=== PATIENT | male | born 1950 | race Caucasian/White ===

== ENCOUNTER → 2016-07-04 | Outpatient (CLI) | payer OTHER ==
[~2016-07-04] MED LIST: ASPI1TAB PO; CENTTAB47 PO; CIPR500T89 PO; FISH100049 PO; GARL1CAP PO; LISI-538 PO; OMEP40CA2 PO; ROXI1TAB2 PO; TAMS0.4C2 PO; TYLE650T25 PO; VIAGRA PO; ZOCO20TA PO
[2016-07-04 13:19] LABS: MEAN CORPUSCULAR HEMOGLOBIN 30.4 pg (27.0-33.0); MEAN CORPUSCULAR VOLUME 89.5 fl (80.0-96.0); RED CELL DISTRIBUTION WIDTH 12.6 % (11.5-14.5); WHITE BLOOD COUNT 5.7 K/mm3 (4.0-10.0)
[2016-07-04 13:32] LABS: ANION GAP 7 MEQ/L (8-16); BLOOD UREA NITROGEN 21 MG/DL (7-18); CALCIUM LEVEL 8.7 MG/DL (8.8-10.2); CARBON DIOXIDE LEVEL 30 MEQ/L (21-32); CHLORIDE LEVEL 102 MEQ/L (98-107); CREATININE FOR GFR 0.79 MG/DL (0.70-1.30); GLOMERULAR FILTRATION RATE > 60.0 (>49); GLUCOSE, FASTING 85 MG/DL (80-110); POTASSIUM SERUM 4.7 MEQ/L (3.5-5.1); SODIUM LEVEL 139 MEQ/L (136-145)
== END ==
LOC: M SMT 11:07
PROVIDERS: ATTEND Urology
DX: N20.0 Calculus of kidney (principal)

== ENCOUNTER → 2016-07-11 | Outpatient (CLI) | payer OTHER ==
--- NOTE | 2016-07-11 08:45 | REP ---
Clinical: Nephrolithiasis. Comparison: None. Findings: Left kidney demonstrates minimal stranding and possible 1 mm nonobstructing calculus along with mild hydronephrosis and proximal hydroureter. The mid to distal ureter is incompletely evaluated due to surrounding structures which are relatively isointense to the ureter and obscure discrete visualization through the abdomen and pelvis. The right kidney demonstrates mild perinephric stranding and suggestions for a small parapelvic and cortical based cysts without hydroureternephrosis and no obvious nephrolithiasis. The bladder is partially collapsed but grossly unremarkable. The prostate is prominent and measures 5 cm maximal diameter. Liver, spleen, pancreas, gallbladder, and bilateral adrenal glands are normal for noncontrast evaluation. The enteric system demonstrates scattered colonic diverticulosis without acute diverticulitis and no evidence for bowel obstruction or perforation. Normal terminal ileum and appendix identified in the right lower quadrant. No pelvic fluid or ascites. No obvious adenopathy. Atherosclerotic changes of the aorta noted without aneurysm. Lung bases demonstrate moderate to large hiatal hernia containing portions of the proximal stomach. Lung bases demonstrate scattered chronic interstitial changes and scarring with bronchiectasis. Atherosclerotic changes to the coronary arteries noted with mild cardiomegaly. Skeletal structures demonstrate advanced degenerative changes and chronic dextroconvex scoliosis. Small early left inguinal hernia contains a portion of nonobstructed sigmoid colon. Impression: 1. Left-sided hydronephrosis and proximal hydroureter without obvious evidence for obstructing calculus is possibly related to extrinsic compression due to scoliosis and associated positional changes of the intra-abdominal structures. A 1 mm left intrarenal calculus is identified. The right kidney suggests simple and complex cysts which may be further evaluated by ultrasound. 2. Enlarged prostate gland. 3. Moderate to large hiatal hernia containing portion of proximal stomach. 4. Colonic diverticulosis without acute diverticulitis. 5. Small forming left inguinal hernia containing nonobstructed portion of sigmoid colon. Signed by Miguel Angel Berry MD 07/11/2016 08:36 A
== END ==
LOC: M RAD 08:07
PROVIDERS: ATTEND Urology
DX: N20.0 Calculus of kidney (principal); N28.1 Cyst of kidney, acquired; N40.1 Benign prostatic hyperplasia with lower urinary tract symptoms; K44.9 Diaphragmatic hernia without obstruction or gangrene; K57.30 Diverticulosis of large intestine without perforation or abscess without bleeding; K40.90 Unilateral inguinal hernia, without obstruction or gangrene, not specified as recurrent; N13.30 Unspecified hydronephrosis; M41.9 Scoliosis, unspecified

== ENCOUNTER → 2016-07-26 | Outpatient (CLI) | payer OTHER ==
--- NOTE | 2016-07-26 09:34 | REP ---
MRI right knee without contrast: History: Osteoarthritis right knee. Right knee pain. No comparison radiographs. Technique: Sagittal, axial and coronal imaging planes are utilized for T1, proton density and T2-weighted scans. Findings: There is a large zone of marrow edema occupying much of the medial femoral condyle. There is a large wafer shaped osteochondral defect lesion of the weightbearing surface of the medial femoral condyle with a thin band of fluid undermining the subcortical bone in this region. The defect measures 20 mm anterior to posterior by 13 mm medial to lateral. There is slight flattening visible on the sagittal plane images. No other displacement. The marrow edema is centered around this lesion. It is consistent with a degenerative or traumatic osteochondral fracture. There is an associated complex tear of the medial meniscus. This particularly involves the posterior horn. No displaced meniscal material is seen. There is also a complex tear involving the lateral meniscus with increased signal intensity extending both superiorly and inferiorly at mid meniscal level. Anterior and posterior cruciate ligaments appear intact. The patellar and quadriceps tendons have an intact appearance. There is no evidence of medial or lateral collateral ligament disruption. There is a large joint effusion and a moderate sized Angel's cyst. There are extensive chondromalacia changes. The central zone of the patella shows full-thickness articular cartilage loss. There is some subcortical edema in the patella. Advanced chondromalacia is seen in both the medial and lateral femoral condyles as well as advanced chondromalacia changes in the medial tibial plateau articular cartilage. Joint space narrowing is seen medially. There is some medial meniscal extrusion. There is periarticular soft tissue edema. This extends caudal to the Angel's cyst in the posteromedial calf soft tissues. Impression: The most compelling abnormality is a large osteochondral fracture involving the articular surface of the medial femoral condyle with extensive associated marrow edema. 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 Both medial and lateral meniscal tears are seen. There is a large joint effusion and a Angel's cyst is observed. Signed by Herminio Watt MD 07/26/2016 10:19 A
== END ==
LOC: M RAD 06:29
PROVIDERS: ATTEND Family Medicine
DX: S72.431A Displaced fracture of medial condyle of right femur, initial encounter for closed fracture (principal); M17.11 Unilateral primary osteoarthritis, right knee; M23.300 Other meniscus derangements, unspecified lateral meniscus, right knee; M23.303 Other meniscus derangements, unspecified medial meniscus, right knee; M94.261 Chondromalacia, right knee; M71.21 Synovial cyst of popliteal space [Baker], right knee; X58.XXXA Exposure to other specified factors, initial encounter; Y93.9 Activity, unspecified; Y92.9 Unspecified place or not applicable; Y99.8 Other external cause status

== ENCOUNTER → 2016-08-10 | Outpatient (REF) | payer OTHER ==
[2016-08-10 12:49] LABS: BLOOD UREA NITROGEN 19 MG/DL (7-18); CREATININE FOR GFR 0.98 MG/DL (0.70-1.30); GLOMERULAR FILTRATION RATE > 60.0 (>49)
== END ==
LOC: M LABDRAW1 12:14
PROVIDERS: ATTEND Orthopaedic Surgery
DX: M87.051 Idiopathic aseptic necrosis of right femur (principal)

== ENCOUNTER → 2016-09-18 | Outpatient (CLI) | payer OTHER ==
[~2016-09-18] MED LIST changes: +CIPR-249 PO; -CIPR500T89 PO; +GARL10004 PO; -GARL1CAP PO
[2016-09-18 11:55] LABS: MEAN CORPUSCULAR HEMOGLOBIN 30.5 pg (27.0-33.0); MEAN CORPUSCULAR HGB CONC 34.1 g/dl (32.0-36.5); MEAN CORPUSCULAR VOLUME 89.4 fl (80.0-96.0); RED CELL DISTRIBUTION WIDTH 12.4 % (11.5-14.5)
[2016-09-18 12:00] LABS: INR 1.06
[2016-09-18 12:20] LABS: ALBUMIN 3.7 GM/DL (3.2-5.2); ALBUMIN/GLOBULIN RATIO 1.48 (1.00-1.93); ALKALINE PHOSPHATASE 79 U/L (45-117); ALT/SGPT 23 U/L (12-78); ANION GAP 7 MEQ/L (8-16); AST/SGOT 19 U/L (15-37); BILIRUBIN,TOTAL 0.6 MG/DL (0.2-1.0); BLOOD UREA NITROGEN 22 MG/DL (7-18); CALCIUM LEVEL 8.8 MG/DL (8.8-10.2); CARBON DIOXIDE LEVEL 28 MEQ/L (21-32); CHLORIDE LEVEL 109 MEQ/L (98-107); CREATININE FOR GFR 0.85 MG/DL (0.70-1.30); GLOMERULAR FILTRATION RATE > 60.0 (>49); GLUCOSE, FASTING 83 MG/DL (80-110); POTASSIUM SERUM 4.3 MEQ/L (3.5-5.1); SODIUM LEVEL 144 MEQ/L (136-145); TOTAL PROTEIN 6.2 GM/DL (6.4-8.2)
--- NOTE | 2016-09-18 16:46 | ECGEPIP ---
Stationary ECG Study [facility] Test Date: 2016-09-18 Pat Name: CONI ELLINGTON Department: Room: - Gender: M [employer]: : 1950 Requested By: Jo Krishna Order Number: [id number] Reading MD: Brain Rodriguez Measurements Intervals [place] Rate: 63 P: 6 TX: 156 QRS: -12 QRSD: 141 T: -5 QT: 454 QTc: 466 Interpretive Statements Sinus rhythm with PACs versus multifocal atrial rhythm. Low voltages with indeterminate frontal axis, Right bundle branch block and Q waves V1 and V2 Pulmonary disease versus body habitus; rule out prior septal injury Rhythm change from 12/22/14 Electronically Signed On 09-18-2016 16:46:31 EDT by Brain Rodriguez
--- NOTE | 2016-09-19 02:37 | REP ---
Clinical: Preoperative assessment. Technique: PA and lateral. Comparison: 12/22/2014. Findings: Elevation to the right hemidiaphragm remains relatively stable. Lung horn demonstrate chronic-appearing diffuse interstitial changes. The mediastinum and cardiac silhouette are within normal limits and stable. Airway appears patent and midline. The skeletal structures demonstrate age-related degenerative changes and evidence for prior right shoulder replacement. Impression: Chronic stable changes. No obvious acute cardiopulmonary process. Signed by Miguel Angel Berry MD 09/19/2016 02:29 A
== END ==
LOC: M ADMPAT 10:25
PROVIDERS: ATTEND Orthopaedic Surgery
DX: Z01.818 Encounter for other preprocedural examination (principal); M17.11 Unilateral primary osteoarthritis, right knee

== ENCOUNTER → 2016-11-02 | Outpatient (CLI) | payer OTHER, MEDICARE ==
--- NOTE | 2016-11-02 11:50 | REP ---
Clinical: Renal cysts. Technique: Real time hill scale ultrasound examination using curved array transducer. Findings: The kidneys are normal in reniform shape with subtle increased parenchymal echogenicity suggesting the possibility of medical renal disease. There is no evidence for hydronephrosis, obvious nephrolithiasis or mass lesion. No perinephric fluid collections are identified. The right kidney measures 9.9 x 6.0 x 6.2 cm with a 13 x 9 x 7 mm simple parapelvic cyst and 15 x 13 x 17 mm relatively simple appearing lower pole cortical cyst. The left kidney measures 11.0 x 6.9 x 6.1 cm without evidence for cyst. The bladder is grossly unremarkable and measures approximately 6.0 x 5.3 x 3.0 cm. The prostate gland is heterogeneous and moderately enlarged measuring 5.5 x 4.3 x 4.5 cm. Impression: 1. Mildly increased parenchymal echogenicity suggest fecal renal disease. To simple appearing right renal cysts are essentially unchanged compared to prior CT. 2. Heterogeneous moderately enlarged prostate gland. Signed by Miguel Angel Berry MD 11/02/2016 11:42 A
== END ==
LOC: M RAD 10:50
PROVIDERS: ATTEND Family Medicine
DX: N28.1 Cyst of kidney, acquired (principal); N40.0 Benign prostatic hyperplasia without lower urinary tract symptoms

== ENCOUNTER → 2017-12-05 | Outpatient (CLI) | payer MEDICARE, OTHER | LOC: M RAD 13:35 | DX: N28.1 Cyst of kidney, acquired (principal) | CPT/HCPCS: 76775 ==

== ENCOUNTER → 2017-12-10 | Outpatient (REF) | payer MEDICARE, OTHER ==
[2017-12-10 18:38] LABS: APPEARANCE, URINE HAZY (CLEAR); BACTERIA, URINE AUTO NEGATIVE (NEGATIVE); BILIRUBIN, URINE AUTO NEGATIVE (NEGATIVE); BLOOD, URINE BLOOD NEGATIVE (NEGATIVE); COLOR, URINE YELLOW (YELLOW); GLUCOSE, URINE (UA) AUTO NEGATIVE (NEGATIVE); KETONE, URINE AUTO NEGATIVE (NEGATIVE); LEUKOCYTE ESTERASE, URINE AUTO NEGATIVE (NEGATIVE); MUCUS, URINE SMALL (NEGATIVE); NITRITE, URINE AUTO NEGATIVE (NEGATIVE); PROTEIN, URINE AUTO NEGATIVE (NEGATIVE); RBC, URINE AUTO 1 /HPF (0-3); SQUAMOUS EPITHELIAL CELL UR AU 0 /HPF (0-6); UROBILINOGEN, URINE AUTO 0.2 mg/dL (0.0-2.0); WBC, URINE AUTO 1 /HPF (0-3)
== END ==
LOC: M SMT 17:01
DX: N40.1 Benign prostatic hyperplasia with lower urinary tract symptoms (principal)
CPT/HCPCS: 81001

== ENCOUNTER → 2017-12-13 | Outpatient (CLI) | payer MEDICARE, OTHER | LOC: M RAD 18:34 | DX: Z87.442 Personal history of urinary calculi (principal); N40.1 Benign prostatic hyperplasia with lower urinary tract symptoms; N28.1 Cyst of kidney, acquired; N20.0 Calculus of kidney; K57.30 Diverticulosis of large intestine without perforation or abscess without bleeding; M51.34 Other intervertebral disc degeneration, thoracic region; M51.36 Other intervertebral disc degeneration, lumbar region; K44.9 Diaphragmatic hernia without obstruction or gangrene; K40.90 Unilateral inguinal hernia, without obstruction or gangrene, not specified as recurrent | CPT/HCPCS: 74176 ==

== ENCOUNTER → 2018-04-21 | Outpatient (REF) | payer MEDICARE, OTHER ==
[2018-04-21 12:21] LABS: BASO % 0.6 % (0.0-1.0); EOS # 0.1 10^3/uL (0.0-0.50); EOS % 2.4 % (0.0-3.0); HEMATOCRIT 44.2 % (42.0-52.0); HEMOGLOBIN 14.5 g/dl (13.5-17.5); LYMPH # 0.8 10^3/uL (1.5-4.5); LYMPH % 16.3 % (24.0-44.0); MEAN CORPUSCULAR HEMOGLOBIN 29.5 pg (27.0-33.0); MEAN CORPUSCULAR HGB CONC 32.8 g/dl (32.0-36.5); MEAN CORPUSCULAR VOLUME 89.8 fl (80.0-96.0); MONO # 0.4 10^3/uL (0.0-0.8); MONO % 7.7 % (0.0-5.0); NEUTROPHILS # 3.7 10^3/uL (1.8-7.7); NEUTROPHILS % 72.2 % (36.0-66.0); PLATELET COUNT, AUTOMATED 291 10^3/uL (150-450); RED BLOOD COUNT 4.92 10^6/uL (4.30-6.10); WHITE BLOOD COUNT 5.1 10^3/uL (4.0-10.0)
[2018-04-21 12:34] LABS: HEMOGLOBIN A1c 6.2 %
[2018-04-21 12:35] LABS: INR 1.06; PROTHROMBIN TIME 13.9 SECONDS (12.1-14.4)
[2018-04-21 12:36] LABS: PARTIAL THROMBOPLASTIN TIME 30.9 SECONDS (25.4-37.6)
[2018-04-21 13:08] LABS: ALBUMIN 3.4 GM/DL (3.2-5.2); ALT/SGPT 28 U/L (12-78); BILIRUBIN,TOTAL 0.6 MG/DL (0.2-1.0); BLOOD UREA NITROGEN 18 MG/DL (7-18); CALCIUM LEVEL 8.1 MG/DL (8.8-10.2); CARBON DIOXIDE LEVEL 28 MEQ/L (21-32); CHLORIDE LEVEL 105 MEQ/L (98-107); CREATININE FOR GFR 0.76 MG/DL (0.70-1.30); GLOMERULAR FILTRATION RATE > 60.0 (>49); GLUCOSE, FASTING 80 MG/DL (70-100); POTASSIUM SERUM 4.7 MEQ/L (3.5-5.1); PROSTATIC SPECIFIC AG MONITOR 3.72 NG/ML (< 4.00); SODIUM LEVEL 141 MEQ/L (136-145); TOTAL PROTEIN 6.1 GM/DL (6.4-8.2)
[2018-04-21 13:09] LABS: MALB URINE SIEMENS 15.5 MG/L; MAU/CREAT RATIO 15.3 MCG/MG (0.0-30.0)
== END ==
LOC: M SFHCPLAZ 08:40
PROVIDERS: ATTEND Family Medicine
DX: R73.01 Impaired fasting glucose (principal); I10 Essential (primary) hypertension; M17.10 Unilateral primary osteoarthritis, unspecified knee; R97.20 Elevated prostate specific antigen [PSA]; Z79.01 Long term (current) use of anticoagulants

== ENCOUNTER → 2018-05-05 | Outpatient (CLI) | payer MEDICARE, OTHER ==
--- NOTE | 2018-05-05 17:16 | REP ---
Urinary tract sonography: History: Nephrolithiasis. Comparison study: December 05, 2017 showed a simple cyst in the right kidney, possible mild left-sided hydronephrosis and enlarged prostate. Comparison CT study December 13, 2017 prostate enlargement and a 4 mm calcification at the periphery of the left renal cortex. Sonographic findings: Scanning at the level of the urinary bladder shows enlarged heterogeneous prostate with sonographic dimensions of 5.6 x 3.8 x 5.2 cm, calculated volume of 58 ml. Trabeculated bladder mariano are seen. Mildly increased renal cortical echogenicity pattern is seen consistent with some degree of chronic medical renal disease. Right kidney measures 10.9 x 5.9 x 5.2 cm. Left renal dimensions are 11.1 x 6.5 x 6.2 cm. There is no evidence of hydronephrosis on either side. No renal mass lesion is seen. There is a 1.6 cm cyst at the lower pole right kidney seen by ultrasound. This corresponds with the CT findings. No other renal lesion is seen. No sonographic evidence of nephrolithiasis. Impression: No hydronephrosis or nephrolithiasis seen by ultrasound. Enlarged prostate with trabeculated bladder mariano. Electronically Signed by Herminio Watt MD 05/05/2018 07:15 P
== END ==
LOC: M RAD 12:00
PROVIDERS: ATTEND Physician Assistant Medical
DX: Z87.448 Personal history of other diseases of urinary system (principal); N40.0 Benign prostatic hyperplasia without lower urinary tract symptoms

== ENCOUNTER → 2019-08-25 | Outpatient (CLI) | payer MEDICARE, OTHER ==
[~2019-08-25] MED LIST changes: +AMLO25TA PO; -ASPI1TAB PO; +ASPI81TA26 PO; +ATOR40TA75 PO; -OMEP40CA2 PO; +OMEP40CA97 PO
== END ==
LOC: M LABSMTC 10:14
PROVIDERS: ATTEND Anesthesiology
DX: Z01.818 Encounter for other preprocedural examination (principal); Z11.59 Encounter for screening for other viral diseases
CPT/HCPCS: C9803; U0003

== ENCOUNTER 2019-08-28 06:47 | Day surgery (SDC) | payer MEDICARE, OTHER ==
[~2019-08-28] VITALS: Ht 167.6 cm; Wt 71.1 kg
[~2019-08-28 06:47] MED LIST changes: +LIDOCAINE 1% MDV 20ML VIAL SQ PRN
[2019-08-28] MEDS ORDERED: LR 1,000 ML IV ONE (07:00)
[2019-08-28] MEDS ORDERED: LevoFLOXacin IV 500 MG in IV 1 EA IV ONE (07:00)
[2019-08-28] MEDS ORDERED: MIDAZOLAM INJ 2MG/2ML VIAL (J2250 PER 1MG) As Ordered ONE (07:13)
[2019-08-28] MEDS ORDERED: fentaNYL 250 MCG/5 ML INJECTION (J3010) As Ordered ONE (07:13)
[2019-08-28] MEDS ORDERED: dexameTHASONE 4 MG/ML 1ML VIAL (J1100 PER 1MG) As Ordered ONE (07:17)
[2019-08-28] MEDS ORDERED: ONDANSETRON 4MG/2ML VIAL As Ordered ONE (07:17)
[2019-08-28] MEDS ORDERED: propofoL 200 MG/20 ML VIAL As Ordered ONE (07:17)
[2019-08-28] MEDS ORDERED: LIDOCAINE 2% 100MG/5ML SDV (FOR ANES.) As Ordered ONE (07:17)
[2019-08-28] MEDS ORDERED: ROCURONIUM BROMIDE 50 MG/5 ML VIAL As Ordered ONE ×2 (07:17→08:24)
[2019-08-28] MEDS ORDERED: BUPIVACAINE/EPIN 0.25% 30 ML VIAL As Ordered ONE (07:20)
[2019-08-28] MEDS ORDERED: LACRILUBE (AKWA TEARS) OPHTH OINT 3.5 GM As Ordered ONE (07:55)
[2019-08-28] MEDS ORDERED: PHENYLephrine HCL 500 MCG/5 ML (100MCG/ML) SYRINGE (J2370) As Ordered ONE (08:09)
[2019-08-28] MEDS ORDERED: ePHEDrine SULFATE 25 MG/5 ML(5MG/ML) SYRINGE As Ordered ONE (08:09)
[2019-08-28] MEDS ORDERED: ACETAMINOPHEN 1000MG 100ML IV BTL (OFIRMEV) (J0131 PER 10MG) As Ordered ONE (08:22)
[2019-08-28] MEDS ORDERED: SUGAMMADEX SODIUM 500 MG/5 ML VIAL (BRIDION) As Ordered ONE (08:22)
[2019-08-28] MEDS ORDERED: KETOROLAC 60MG 2ML VIAL As Ordered ONE (08:22)
[2019-08-28] MEDS ORDERED: KETAMINE HCL 200 MG/20 ML VIAL As Ordered ONE (08:28)
[2019-08-28] MEDS ORDERED: DESFLURANE 240 ML INHALANT As Ordered ONE (09:56)
[2019-08-28] MEDS ORDERED: PERCOCET 5MG/325MG TAB PO PRN (10:45)
[2019-08-28] MEDS ORDERED: LR 1,000 ML IV SCH ×2 (10:45)
[2019-08-28] MEDS ORDERED: NORCO, ANEXSIA 5/325MG TABLET (HYDROcodone/ACETAMINOPHEN) PO PRN (10:45)
[2019-08-28] MEDS ORDERED: fentaNYL 100 MCG/2 ML INJECTION (J3010) IV PRN (10:45)
[2019-08-28] MEDS ORDERED: METOCLOPRAMIDE INJ 10MG/2ML VIAL (J2765 PER 1) IV PRN (10:45)
[2019-08-28] MEDS ORDERED: ONDANSETRON 4MG/2ML VIAL IV PRN ×2 (10:45)
[2019-08-28 13:45] VITALS: BP 123/72
[2019-08-28] MEDS ORDERED: KETOROLAC 30 MG/ML 1ML VIAL IV SCH (16:00)
--- NOTE | 2019-08-28 19:12 | RO ---
DATE OF PROCEDURE: 08/28/2019 PREOPERATIVE DIAGNOSIS: Recurrent left inguinal hernia. POSTOPERATIVE DIAGNOSES: 1. Recurrent indirect left inguinal hernia. 2. Right indirect inguinal hernia. PROCEDURE: Robotic-assisted laparoscopic repair of recurrent left inguinal hernia with ProGrip mesh and robotic-assisted laparoscopic right inguinal hernia repair with ProGrip mesh. SURGEON: Dr. Angel Ng PIECE WORK INSPECTOR: Destiny Baez (provided retraction, exposure, trocar placement, instrument, abdominal wall closure.) ANESTHESIA: General endotracheal anesthesia. ESTIMATED BLOOD LOSS: Minimal. FLUIDS: Crystalloid. DESCRIPTION OF PROCEDURE: The patient was brought to the operating room, was given general anesthesia. After adequate anesthesia and preoperative antibiotics were given, the patient was prepped and draped in the usual sterile fashion. Next, the patient was placed in Trendelenburg position. A supraumbilical incision was made with a skin knife. Blunt dissection was carried down to fascia. Veress needle placed into the abdominal cavity, insufflated to 15 mm of pressure. Dilating 8 mm trocar was placed at this time and under direct visualization two lateral ports were placed. Next, there was sigmoid colon within the left inguinal hernia site, which was reduced, and the adhesions holding the sigmoid colon up to the hernia sac were taken down with sharp dissection as well as monopolar cut scissors. Same as in the right inguinal area, there was omentum stuck within the inguinal canal, which was reduced and mobilized with monopolar cut scissors. The patient had a previous appendectomy and adhesions were also taken down from that standpoint. Next, the patient had previous left inguinal hernia and the 3DMax mesh would be appreciated in the left inguinal area. However, it had been pulled off the cord structures and pulled anteriorly and superiorly, and the hernia had gotten behind this. In any case, the peritoneum on the left hand side was taken down with monopolar cut scissors. Because of the previous dissection on the left side, there was a great deal of scar tissue and some oozing from traversing vessels that were treated with electrocautery. The epigastrics also were tightly adherent to the mesh but eventually were mobilized adequately. Next, the hernia sac was mobilized off the cord structures and eventually off the vas and the vessels. There was quite a redundancy to the vessels, but eventually this was mobilized off the iliacs as well and medially it was much more adherent on the rectus muscle and then working our way more medial than that given the edge of the rectus muscle was very fibrotic and thus given that there was no evidence of direct hernia, I continued with my dissection near Luigi's ligament and this was cleared in the superficial area down to the vessels as well. Once all this was nicely cleared, the mesh was cut to the appropriate size and pressed into position in this area, and then the peritoneum was closed with a #3-0 Vicryl V-Loc suture. The right side also was treated in much the same manner. The peritoneum was taken down with monopolar cut scissors, and given there was much less fibrosis in the lateral aspect, the hernia sac was able to be mobilized easier laterally. However, still along the rectus muscle and in the area of Luigi's ligament and the pubis, this was still very fibrotic. Thus, I just mobilized the lateral border of the rectus in this area. No evidence of direct hernia was appreciated, and the hernia sac was mobilized off the cord structures, the vas, to where I could then nicely visualize the iliac vessels. The mesh was cut to the appropriate size, pressed into position and the peritoneum closed with #3-0 Vicryl V-Loc suture. Next, the trocars were removed under direct visualization. #4-0 Vicryl was used to close all incisions. Steri-Strips and a dry sterile dressing was applied. The patient was awakened, extubated, brought to the recovery room awake, alert, hemodynamically stable. Sponge and needle counts correct times two.
== END 2019-08-28 14:12 | disposition home or self-care (01) ==
LOC: M SDC 06:47
PROVIDERS: ATTEND Surgery
DX: K40.01 Bilateral inguinal hernia, with obstruction, without gangrene, recurrent (principal); I10 Essential (primary) hypertension; K21.9 Gastro-esophageal reflux disease without esophagitis; I25.10 Atherosclerotic heart disease of native coronary artery without angina pectoris; I45.10 Unspecified right bundle-branch block; E78.5 Hyperlipidemia, unspecified; N40.0 Benign prostatic hyperplasia without lower urinary tract symptoms; Z98.61 Coronary angioplasty status; Z79.82 Long term (current) use of aspirin; Z79.899 Other long term (current) drug therapy; Z88.0 Allergy status to penicillin; Z88.1 Allergy status to other antibiotic agents; Z88.2 Allergy status to sulfonamides
CPT/HCPCS: 49650; 49651; 87486; 87581; 87633; 87798; C1713; C1781; J0131; J1100; J1885; J1956; J2250; J2370; J2405; J3010

== ENCOUNTER → 2020-01-19 | Outpatient (REF) | payer MEDICARE, OTHER ==
[~2020-01-19] MED LIST changes: -LIDOCAINE 1% MDV 20ML VIAL SQ PRN
[2020-01-19 14:06] LABS: APPEARANCE, URINE HAZY (CLEAR); BACTERIA, URINE AUTO NEGATIVE (NEGATIVE); BILIRUBIN, URINE AUTO NEGATIVE (NEGATIVE); BLOOD, URINE BLOOD NEGATIVE (NEGATIVE); COLOR, URINE YELLOW (YELLOW); GLUCOSE, URINE (UA) AUTO NEGATIVE (NEGATIVE); KETONE, URINE AUTO NEGATIVE (NEGATIVE); LEUKOCYTE ESTERASE, URINE AUTO NEGATIVE (NEGATIVE); MUCUS, URINE SMALL (NEGATIVE); NITRITE, URINE AUTO NEGATIVE (NEGATIVE); PROTEIN, URINE AUTO NEGATIVE (NEGATIVE); RBC, URINE AUTO 4 /HPF (0-3); SPECIFIC GRAVITY URINE AUTO 1.026 (1.002-1.035); SQUAMOUS EPITHELIAL CELL UR AU 0 /HPF (0-6); UROBILINOGEN, URINE AUTO 0.2 mg/dL (0.0-2.0); WBC, URINE AUTO 2 /HPF (0-3)
== END ==
LOC: M SFHCPLAZ 13:14
PROVIDERS: ATTEND Family Medicine
DX: N32.81 Overactive bladder (principal); Z79.899 Other long term (current) drug therapy; Z23 Encounter for immunization
CPT/HCPCS: 81001; 87086; 90682; G0008; G0463

== ENCOUNTER → 2020-08-17 | Outpatient (REF) | payer MEDICARE, OTHER ==
[~2020-08-17] MED LIST changes: -LISI-538 PO; +LISI20TA33 PO; +OMEP40CA4 PO; -OMEP40CA97 PO
== END ==
LOC: M LAB REF 18:42
PROVIDERS: ATTEND Family Medicine
DX: C44.519 Basal cell carcinoma of skin of other part of trunk (principal)
CPT/HCPCS: 11104; 88305; G0463

== ENCOUNTER → 2020-10-17 | Outpatient (REF) | payer MEDICARE | LOC: M SFHCPLAZ 16:50 → M LAB REF 16:50 | PROVIDERS: ATTEND Family Medicine | DX: C44.519 Basal cell carcinoma of skin of other part of trunk (principal); L90.5 Scar conditions and fibrosis of skin | CPT/HCPCS: 11603; 12032; 88305; G0463 ==

== ENCOUNTER → 2021-12-21 | Outpatient (CLI) | payer MEDICARE, OTHER ==
[~2021-12-21] MED LIST changes: +SIMV-253 PO; +VITMTA PO; -ZOCO20TA PO
== END ==
LOC: M LABSMTC 09:49
PROVIDERS: ATTEND Anesthesiology
DX: Z01.812 Encounter for preprocedural laboratory examination (principal); Z20.822 Contact with and (suspected) exposure to COVID-19

== ENCOUNTER 2021-12-26 08:16 | Day surgery (SDC) | payer MEDICARE, OTHER ==
[~2021-12-26] VITALS: Ht 167.6 cm; Wt 71.8 kg
[~2021-12-26 08:16] MED LIST changes: +ACETYLCHOLINE OPHTH SOLN 1% 2ML (MIOCHOL-E) As Ordered ONE; +BSS IRR 500ML/OMIDRIA 4ML IRR BAG (OR ONLY) As Ordered ONE; +CYCLOPENTOLATE 1% OPHTH SOLN 2 ML BTL OS SCH; +LIDOCAINE 1% 1ML PF SYRINGE (OR EYE CASES) As Ordered ONE; +MIDAZOLAM INJ 2MG/2ML VIAL (J2250 PER 1MG) As Ordered ONE; +PROPARACAINE 0.5% OPHTH SOL 15ML OS ONE; +fentaNYL 100 MCG/2 ML INJECTION As Ordered ONE
[2021-12-26] MEDS: OFLOXACIN 0.3 % (OCUFLOX) OPTH SOL 5ML OS SCH ×2 (09:32→09:41)
[2021-12-26] MEDS: CYCLOPENTOLATE 1% OPHTH SOLN 2 ML BTL OS SCH ×3 (09:32→09:46)
[2021-12-26] MEDS: PHENYLEPHRINE 2.5% OPHTH SOL 2ML OS SCH ×3 (09:32→09:46)
[2021-12-26] MEDS: TROPICAMIDE 1% OPHTH SOLN 2ML OS SCH ×2 (09:32→09:41)
[2021-12-26] MEDS ORDERED: TOBRAMYCIN 80MG/2ML VIAL As Ordered ONE (11:12)
[2021-12-26] MEDS ORDERED: TOBRADEX OPHTH SUSP 2.5 ML As Ordered ONE (11:12)
[2021-12-26] MEDS ORDERED: TOBRADEX OPHTH OINT 3.5 GM As Ordered ONE (11:14)
[2021-12-26 11:20] VITALS: BP 122/72
== END 2021-12-26 11:39 | disposition home or self-care (01) ==
LOC: M SDC 08:16
PROVIDERS: ATTEND Ophthalmology
DX: H25.12 Age-related nuclear cataract, left eye (principal); I10 Essential (primary) hypertension; E78.5 Hyperlipidemia, unspecified; R73.01 Impaired fasting glucose; N52.9 Male erectile dysfunction, unspecified; D72.819 Decreased white blood cell count, unspecified; K21.00 Gastro-esophageal reflux disease with esophagitis, without bleeding; K44.9 Diaphragmatic hernia without obstruction or gangrene; K22.2 Esophageal obstruction; Z79.899 Other long term (current) drug therapy; Z79.82 Long term (current) use of aspirin; Z87.891 Personal history of nicotine dependence; Z88.0 Allergy status to penicillin; Z88.1 Allergy status to other antibiotic agents; Z88.8 Allergy status to other drugs, medicaments and biological substances
CPT/HCPCS: 66984; J1097; J2250; J3010; V2632

== ENCOUNTER 2022-04-25 19:08 | Emergency (ER) | payer MEDICARE, OTHER ==
[~2022-04-25] VITALS: Ht 170.2 cm; Wt 69.2 kg
[~2022-04-25 19:08] MED LIST changes: -ACETYLCHOLINE OPHTH SOLN 1% 2ML (MIOCHOL-E) As Ordered ONE; -BSS IRR 500ML/OMIDRIA 4ML IRR BAG (OR ONLY) As Ordered ONE; -CYCLOPENTOLATE 1% OPHTH SOLN 2 ML BTL OS SCH; -LIDOCAINE 1% 1ML PF SYRINGE (OR EYE CASES) As Ordered ONE; -MIDAZOLAM INJ 2MG/2ML VIAL (J2250 PER 1MG) As Ordered ONE; -PROPARACAINE 0.5% OPHTH SOL 15ML OS ONE; -fentaNYL 100 MCG/2 ML INJECTION As Ordered ONE
[2022-04-25] MEDS ORDERED: XARE15TA PO (19:17)
[2022-04-25 21:29] VITALS: BP 135/81
== END 2022-04-25 21:30 | disposition home or self-care (01) ==
LOC: M ED 19:08
DX: I82.402 Acute embolism and thrombosis of unspecified deep veins of left lower extremity (principal); I82.412 Acute embolism and thrombosis of left femoral vein; I82.422 Acute embolism and thrombosis of left iliac vein; I82.432 Acute embolism and thrombosis of left popliteal vein; I25.10 Atherosclerotic heart disease of native coronary artery without angina pectoris; Z79.82 Long term (current) use of aspirin; Z79.899 Other long term (current) drug therapy; Z88.0 Allergy status to penicillin; Z88.8 Allergy status to other drugs, medicaments and biological substances

== ENCOUNTER → 2022-05-01 | Outpatient (CLI) | payer MEDICARE, OTHER ==
[~2022-05-01] MED LIST changes: +XARE15TA PO
[2022-05-01 17:12] LABS: BASO % 0.6 % (0.0-1.0); EOS # 0.1 10^3/uL (0.0-0.5); EOS % 1.8 % (0.0-3.0); HEMATOCRIT 41.8 % (42.0-52.0); HEMOGLOBIN 13.1 g/dl (13.5-17.5); LYMPH # 1.1 10^3/uL (1.5-5.0); MEAN CORPUSCULAR HEMOGLOBIN 29.9 pg (27.0-33.0); MEAN CORPUSCULAR HGB CONC 31.3 g/dl (32.0-36.5); MEAN CORPUSCULAR VOLUME 95.4 fl (80.0-96.0); MONO # 0.6 10^3/uL (0.0-0.8); MONO % 9.5 % (2.0-8.0); NEUTROPHILS # 4.3 10^3/uL (1.5-8.5); NEUTROPHILS % 69.6 % (36.0-66.0); PLATELET COUNT, AUTOMATED 295 10^3/uL (150-450); RED BLOOD COUNT 4.38 10^6/uL (4.30-6.10); WHITE BLOOD COUNT 6.2 10^3/uL (4.0-10.0)
[2022-05-01 17:42] LABS: ALBUMIN 3.6 G/DL (3.2-5.2); ALKALINE PHOSPHATASE 195 U/L (46-116); ALT/SGPT 16 U/L (7.0-40); AST/SGOT 26 U/L (<34); BILIRUBIN,TOTAL 0.7 MG/DL (0.3-1.2); BLOOD UREA NITROGEN 22 MG/DL (9-23); CALCIUM LEVEL 9.3 MG/DL (8.3-10.6); CARBON DIOXIDE LEVEL 29 MMOL/L (20-31); CHLORIDE LEVEL 102 MMOL/L (98-107); CREATININE FOR GFR 0.91 MG/DL (0.70-1.30); FERRITIN 150.4 NG/ML (10.5-307.3); GLOMERULAR FILTRATION RATE > 60.0 (>42); GLUCOSE, FASTING 100 MG/DL (74-106); POTASSIUM SERUM 4.6 MMOL/L (3.5-5.1); SODIUM LEVEL 138 MMOL/L (136-145); TOTAL PROTEIN 6.2 G/DL (5.7-8.2)
== END ==
LOC: M PLALAB 15:31
PROVIDERS: ATTEND Family Medicine
DX: I82.402 Acute embolism and thrombosis of unspecified deep veins of left lower extremity (principal); C44.519 Basal cell carcinoma of skin of other part of trunk

== ENCOUNTER → 2022-05-30 | Outpatient (CLI) | payer MEDICARE, OTHER ==
[~2022-05-30] MED LIST changes: +ISOVUE-370 76% 100ML VIAL As Ordered ONE
== END ==
LOC: M RAD 14:22
PROVIDERS: ATTEND Surgery Vascular Surgery
DX: I82.4Y2 Acute embolism and thrombosis of unspecified deep veins of left proximal lower extremity (principal); K44.9 Diaphragmatic hernia without obstruction or gangrene; N28.1 Cyst of kidney, acquired; I70.0 Atherosclerosis of aorta; M47.9 Spondylosis, unspecified; K76.9 Liver disease, unspecified
CPT/HCPCS: 74174; Q9967

== ENCOUNTER → 2023-05-02 | Outpatient (REF) | payer MEDICARE, OTHER ==
[~2023-05-02] MED LIST changes: -ISOVUE-370 76% 100ML VIAL As Ordered ONE
== END ==
LOC: M SFHCPLAZ 13:47
PROVIDERS: ATTEND Family Medicine
DX: D50.9 Iron deficiency anemia, unspecified (principal); Z12.5 Encounter for screening for malignant neoplasm of prostate; R73.01 Impaired fasting glucose; K74.00 Hepatic fibrosis, unspecified; I10 Essential (primary) hypertension

== ENCOUNTER → 2024-04-27 | Outpatient (REF) | payer MEDICARE, OTHER | LOC: M SFHCPLAZ 12:38 | PROVIDERS: ATTEND Physician Assistant Medical | DX: J40 Bronchitis, not specified as acute or chronic (principal) ==

== ENCOUNTER 2024-11-26 12:41 | Day surgery (SDC) | payer MEDICARE, OTHER ==
[~2024-11-26] VITALS: Ht 167.6 cm; Wt 71.4 kg
[~2024-11-26 12:41] MED LIST changes: +METF-838 PO; +MULTTAB61 PO; +TELM1TAB35 PO
[2024-11-26] MEDS ORDERED: LIDOCAINE 2% 100 MG/5 ML SDV (FOR ANES.) As Ordered ONE (14:25)
[2024-11-26 14:41] VITALS: TEMP 97.6
[2024-11-26 14:52] VITALS: BP 119/71; O2SAT 95
== END 2024-11-26 15:02 | disposition home or self-care (01) ==
LOC: M OPP 12:41
PROVIDERS: ATTEND Surgery
DX: Z12.11 Encounter for screening for malignant neoplasm of colon (principal); K57.30 Diverticulosis of large intestine without perforation or abscess without bleeding; Z95.5 Presence of coronary angioplasty implant and graft; Z88.0 Allergy status to penicillin; Z88.1 Allergy status to other antibiotic agents; Z88.8 Allergy status to other drugs, medicaments and biological substances; Z79.82 Long term (current) use of aspirin; Z79.84 Long term (current) use of oral hypoglycemic drugs; Z79.899 Other long term (current) drug therapy